=== PATIENT | female | born 1980 | race Two or more races ===

== ENCOUNTER 2017-10-26 11:01 | Emergency (ER) | payer OTHER ==
[~2017-10-26] VITALS: Ht 152.4 cm; Wt 77.1 kg
--- NOTE | 2017-10-26 11:05 | NUR ---
a/ox4, AMBULATORY IN A SETAYGAIT TO ED BED 16, PT IS C/O VAGINAL BLEEDING SINCE OCTOBER 14, HEAVIER IN THE LAST 4-5 DAYS. ALSO COMPLAINING OF MILD LOW BACK PAIN. VSS NAD RR EVEN AND UNLABORED, PENDINFG ER MD ROB
[2017-10-26 11:58] LABS: BASOPHILS % (AUTO) 0.3 % (0.0-2.0); EOSINOPHILS % (AUTO) 1.5 % (0.0-6.0); HEMATOCRIT 38 % (33-45); HEMOGLOBIN 13.3 g/dL (11.5-14.8); LYMPHOCYTES # (AUTO) 2.8 /CMM (0.8-4.8); LYMPHOCYTES % (AUTO) 29.2 % (20.0-44.0); MEAN CORPUSCULAR HEMOGLOBIN 30 PG (26.0-33.0); MEAN CORPUSCULAR HGB CONC 35 g/dl (31.0-36.0); MEAN CORPUSCULAR VOLUME 86 fL (82-100); MONOCYTES # (AUTO) 0.3 /CMM (0.1-1.30); MONOCYTES % (AUTO) 2.7 % (2.0-12.0); NEUTROPHILS # (AUTO) 6.3 /CMM (1.8-8.9); NEUTROPHILS % (AUTO) 66.3 % (43.0-81.0); PLATELET COUNT (AUTO) 232 /CMM (150-450); RDW COEFFICIENT OF VARIATION 11.7 (11.5-15.0); RED BLOOD CELL COUNT(AUTO) 4.42 MIL/uL (4.0-5.2); WHITE BLOOD COUNT (AUTO) 9.5 K/uL (4.3-11.0)
[2017-10-26 13:24] LABS: APPEARANCE,URINE CLOUDY (CLEAR); BILIRUBIN,URINE NEGATIVE (NEGATIVE); BLOOD, URINE 3+ Ery/uL (NEGATIVE); COLOR,URINE RED (YELLOW); KETONES,URINE TRACE (NEGATIVE); LEUKOCYTE ESTERASE ,URINE TRACE (NEGATIVE); NITRITE, URINE POSITIVE (NEGATIVE); PROTEIN,URINE 2+ mg/dl (NEGATIVE); UGLUCOSE NEGATIVE (NEGATIVE)
[2017-10-26 13:56] VITALS: BP 124/80
--- NOTE | 2017-10-26 13:58 | NUR ---
Patient discharged to home in stable condition. Written and verbal after care instructions given. Patient verbalizes understanding of instruction.
[2017-10-26 14:15] LABS: RBC,URINE TOO NUMEROUS TO COUN /HPF (0-2)
[2017-10-26 14:16] LABS: BACTERIA,URINE Few /HPF (None Seen); SQUAMOUS EPITHELIAL CELL,UR None Seen /HPF (None Seen)
== END 2017-10-26 13:58 | disposition home or self-care (01) ==
LOC: ER 11:04
DX: N93.8 Other specified abnormal uterine and vaginal bleeding (principal); N39.0 Urinary tract infection, site not specified; N92.6 Irregular menstruation, unspecified; Z90.89 Acquired absence of other organs; Z98.890 Other specified postprocedural states; Z90.49 Acquired absence of other specified parts of digestive tract
CPT/HCPCS: 36415; 76856; 81001; 84703; 85025; 99285; A4606; Z7610; 81000-TC

== ENCOUNTER 2024-07-25 15:16 | Emergency (ER) | payer MEDICAID, OTHER ==
[~2024-07-25] VITALS: Ht 152.4 cm; Wt 76.2 kg
[2024-07-25] MEDS ORDERED: LIDOCAINE 5% (PATCH) 1 EA PATCH TP ONE (15:53)
[2024-07-25] MEDS ORDERED: IBUPROFEN 600 MG TABLET ONE (15:53)
[2024-07-25] MEDS ORDERED: CYCLOBENZAPRINE 10 MG TABLET ONE (15:53)
[2024-07-25] MEDS ORDERED: IBUP-1957 PO (16:03)
[2024-07-25] MEDS ORDERED: CYCL5TAB PO (16:03)
[2024-07-25] MEDS ORDERED: LIDO30AD10 TP (16:03)
[2024-07-25] MEDS: CYCLOBENZAPRINE 10 MG TABLET PO ONE (16:06)
[2024-07-25] MEDS: IBUPROFEN 600 MG TABLET PO ONE (16:06)
[2024-07-25] MEDS: LIDOCAINE 5% (PATCH) 1 EA PATCH TP SCH (16:06)
[2024-07-25 17:14] VITALS: BP 135/82; TEMP 98.3; O2SAT 98
== END 2024-07-25 17:15 | disposition home or self-care (01) ==
LOC: ER 15:19
DX: S13.4XXA Sprain of ligaments of cervical spine, initial encounter (principal); M25.512 Pain in left shoulder; M54.9 Dorsalgia, unspecified; F07.81 Postconcussional syndrome; V43.52XA Car driver injured in collision with other type car in traffic accident, initial encounter; Y93.89 Activity, other specified; Y92.488 Other paved roadways as the place of occurrence of the external cause; Y99.8 Other external cause status